=== PATIENT | female | born 1965 | race Two or more races ===

== ENCOUNTER 2019-10-19 06:50 | Day surgery (SDC) | payer OTHER | END 2019-10-19 11:20 | disposition home or self-care (01) | LOC: AMB-ENDOS 06:50 | PROVIDERS: ATTEND Surgery | DX: D12.3 Benign neoplasm of transverse colon (principal); K64.8 Other hemorrhoids; Z20.828 Contact with and (suspected) exposure to other viral communicable diseases ==